=== PATIENT | female | born 1965 | race Caucasian/White ===

== ENCOUNTER 2025-01-13 09:44 | Observation (INO) | payer BC ==
[~2025-01-13] VITALS: Ht 165.1 cm; Wt 83.4 kg
[2025-01-13] MEDS ORDERED: LEVSOD25 PO (10:03)
[2025-01-13] MEDS ORDERED: ESCI20 PO (10:04)
[2025-01-13] MEDS ORDERED: Ondansetron HCl 2 MG / ML 2ML Vial IV PRN (12:05)
[2025-01-13] MEDS ORDERED: FLU VACC TS2025-26(6MOS UP)/PF 45 MCG/0.5 ML SYRINGE IM SCH (12:05)
--- NOTE | 2025-01-13 13:11 | NUR ---
Report received from ED RN at this time.
[2025-01-13 13:32] LABS: CHOL/HDL RATIO 7.0; Cholesterol 294 mg/dL (50-200); HDL Cholesterol 42 mg/dL (>39); LDL/HDL RATIO 4.6; Low Density Lipoprotein Chol 193 mg/dL (0-110); Triglycerides 293 mg/dL (30-160); Very Low Density Lipoprot Chol 58 mg/dL (6-32)
[2025-01-13 13:34] LABS: BASOPHILS ABSOLUTE AUTO 0.05 K/mm3 (0.00-0.23); BASOPHILS PERCENT AUTO 1 % (0-2); EOSINOPHILS ABSOLUTE AUTO 0.06 K/mm3 (0.00-0.68); EOSINOPHILS PERCENT AUTO 1 % (0-6); Hematocrit 41.8 % (33.0-51.0); Hemoglobin 14.2 g/dL (11.5-16.0); IMMATURE GRAN ABSOLUTE AUTO 0.02 K/mm3 (0.00-0.10); IMMATURE GRAN PERCENT AUTO 0 % (0-1); LYMPHOCYTES ABSOLUTE AUTO 2.05 K/mm3 (0.84-5.20); LYMPHOCYTES PERCENT AUTO 31 % (21-46); MONOCYTES ABSOLUTE AUTO 0.58 K/mm3 (0.16-1.47); MONOCYTES PERCENT AUTO 9 % (4-13); Mean Corpuscular HGB Conc 34.0 g/dL (31.5-36.5); Mean Corpuscular Volume 90 fL (80-100); NEUTROPHILS ABSOLUTE AUTO 3.96 K/mm3 (1.96-9.15); NEUTROPHILS PERCENT AUTO 59 % (41-73); NRBC ABSOLUTE 0.00 K/mm3 (0.00-0.02); NRBC Auto 0.0 /100 WBC (0.0-0.2); Platelet Count 275 K/mm3 (150-400); RDW Coefficient Variation 12.2 % (11.7-14.2); RDW Standard Deviation 40.7 fL (35.1-46.3)
[2025-01-13] MEDS ORDERED: Dose Adjust by Pharmacy XX STA (13:41)
[2025-01-13] MEDS ORDERED: Heparin Sodium 5000 Units/ML 1ML MDV IV ONE (13:45)
[2025-01-13] MEDS ORDERED: Heparin Sodium,Porcine/0.5 NS 500 ML IV SCH (13:45)
[2025-01-13 13:58] LABS: Anti-Xa UFH, PHA Monitoring <0.10 IU/mL; Prothrombin Time Results 11.2 Sec (9.7-11.5)
[2025-01-13] MEDS ORDERED: COQ-10100 MG PO (14:47)
[2025-01-13] MEDS ORDERED: FISH OIL 1,0001 EA10 PO (14:48)
[2025-01-13] MEDS ORDERED: SUPER B-50 COM1 EACH PO (14:49)
[2025-01-13] MEDS ORDERED: GLUCHON PO (14:49)
[2025-01-13] MEDS ORDERED: VIT D3-VIT K21 EACH PO (14:49)
--- NOTE | 2025-01-13 17:20 | NUR ---
SHIFT SUMMARY/UPDATE: PT A/O X4, ABLE TO MAKE NEEDS KNOWN. STRENGTH EQUAL BILATERALLY, INDEP IN ROOM. ROOM AIR, SATS >95%. PT ENDORSES SOB WITH ACTIVITY, AND C/O OF FATIGUE. PT SINUS ASHLEY 50-60s, DENIES CHEST PAIN/PRESSURE. ENDORSES CHEST PRESSURE WITH ACTIVITY THE LAST THREE WEEKS. PB ARMANDO CALLED [facility] WHERE PT WAS SEEN TODAY, [facility] WILL FAX OVER TODA[facility] LAB RESULTS. DR LOJA AT BEDSIDE THIS EVENING, DUE TO UPWARD TREND IN TROPONIN, THERE WILL BE NO STRESS TEST TODAY. PLAN FOR ANGIOGRAM TOMORROW 01/14. PT NPO AT 0000 FOR PROCEDURE. PT LAST BM WAS TODAY, ABLE TO VOID APPROPRIATELY. DENIES ANY CURRENT N/V. PT LYING IN BED, FRIEND AT BEDSIDE. CALL WITHIN REACH. WILL REPORT TO ONCOMING RN.
[2025-01-13 18:31] LABS: Alanine Aminotransfer (ALT/SGP 32.0 U/L (12-78); Albumin, Blood 3.7 g/dL (3.4-5.0); Albumin/Globulin Ratio 1.2 (0.8-1.8); Anion Gap 7.0 mmol/L (3-11); Aspartate Aminotrans (AST/SGOT 21.0 U/L (12-37); Bilirubin, Total 0.5 mg/dL (0.1-1.0); Blood Urea Nitrogen 17.0 mg/dL (8-24); CO2, Blood 25.0 mmol/L (21-32); Calcium, Blood 8.7 mg/dL (8.5-10.1); Chloride, Blood 111.0 mmol/L (98-108); Creatinine, Blood 0.78 mg/dL (0.40-1.00); Globulin, Blood 3.1 g/dL (2.2-4.0); Glucose, Blood 99.0 mg/dL (70-99); Potassium, Blood 3.5 mmol/L (3.5-5.5); Sodium, Blood 139.0 mmol/L (136-145); Total Protein, Blood 6.8 g/dL (6.4-8.2)
--- NOTE | 2025-01-13 18:35 | NUR ---
"Spiritual Care Visit | Pt. Request Pt. is awake in bed and welcomes my visit. Friend is present at bedside. Facilitated a life review and listened with empathy and interest. Rapport is established and well as a sense of trust. Consdiered matters of monserrat and belief. Prayed for the Pt. Pt. displayed evidence of trust and confidence as I normalized the Pt. experience. Pt. verbalized gratitude for the spiritual care visit and welcomed this building carpenter helper to return."
[2025-01-13 20:00] VITALS: BP 121/67
[2025-01-13 23:46] VITALS: BP 130/83
[2025-01-14] VITALS (10 sets, daily range): BP systolic 99–134; BP diastolic 50–74
[2025-01-14 03:25] LABS: BASOPHILS ABSOLUTE AUTO 0.04 K/mm3 (0.00-0.23); BASOPHILS PERCENT AUTO 1 % (0-2); EOSINOPHILS ABSOLUTE AUTO 0.11 K/mm3 (0.00-0.68); EOSINOPHILS PERCENT AUTO 2 % (0-6); Hematocrit 39.5 % (33.0-51.0); Hemoglobin 13.4 g/dL (11.5-16.0); IMMATURE GRAN ABSOLUTE AUTO 0.01 K/mm3 (0.00-0.10); IMMATURE GRAN PERCENT AUTO 0 % (0-1); LYMPHOCYTES ABSOLUTE AUTO 2.78 K/mm3 (0.84-5.20); LYMPHOCYTES PERCENT AUTO 41 % (21-46); MONOCYTES ABSOLUTE AUTO 0.72 K/mm3 (0.16-1.47); MONOCYTES PERCENT AUTO 11 % (4-13); Mean Corpuscular HGB Conc 33.9 g/dL (31.5-36.5); Mean Corpuscular Volume 91 fL (80-100); NEUTROPHILS ABSOLUTE AUTO 3.12 K/mm3 (1.96-9.15); NEUTROPHILS PERCENT AUTO 46 % (41-73); NRBC ABSOLUTE 0.00 K/mm3 (0.00-0.02); NRBC Auto 0.0 /100 WBC (0.0-0.2); Platelet Count 256 K/mm3 (150-400); RDW Coefficient Variation 12.3 % (11.7-14.2); RDW Standard Deviation 41.4 fL (35.1-46.3)
[2025-01-14 03:47] LABS: Alanine Aminotransfer (ALT/SGP 36.0 U/L (12-78); Albumin, Blood 3.5 g/dL (3.4-5.0); Albumin/Globulin Ratio 1.2 (0.8-1.8); Anion Gap 6.0 mmol/L (3-11); Aspartate Aminotrans (AST/SGOT 28.0 U/L (12-37); Bilirubin, Total 0.2 mg/dL (0.1-1.0); Blood Urea Nitrogen 17.0 mg/dL (8-24); CO2, Blood 28.0 mmol/L (21-32); Calcium, Blood 8.5 mg/dL (8.5-10.1); Chloride, Blood 110.0 mmol/L (98-108); Creatinine, Blood 0.8 mg/dL (0.40-1.00); Globulin, Blood 3.0 g/dL (2.2-4.0); Glucose, Blood 119.0 mg/dL (70-99); Potassium, Blood 3.7 mmol/L (3.5-5.5); Sodium, Blood 140.0 mmol/L (136-145); Total Protein, Blood 6.5 g/dL (6.4-8.2)
[2025-01-14] MEDS ORDERED: Clarify Drug Order XX ONE (03:50)
[2025-01-14] MEDS ORDERED: Morphine Sulfate 4 MG/1 ML Injection IV PRN (06:15)
[2025-01-14] MEDS ORDERED: Potassium Chl 20MEQ/Water100ML 100 ML IV STA (06:17)
[2025-01-14] MEDS ORDERED: NS 1,000 ML IV ONE ×2 (06:43→06:47)
[2025-01-14] MEDS ORDERED: Heparin Sodium 1000 Units/ML 10ML MDV ONE ×2 (06:43→06:47)
[2025-01-14] MEDS ORDERED: Verapamil HCL 2.5 MG/ML 2ML Injection ONE (06:43)
[2025-01-14] MEDS ORDERED: Nitroglycerin 2 MG/20 ML BTL ONE (06:43)
[2025-01-14] MEDS ORDERED: NS 250 ML IV ONE (06:43)
--- NOTE | 2025-01-14 06:47 | NUR ---
SHIFT SUMMARY PT A&O X4, CALM, COOPERATIVE TO CARE. HR IN THE 40'S-60'S, SINUS ASHLEY. PT DENIED ANY CP/PRESSURE T/O NIGHT. TRENDING TROPONINS. SBP STABLE. Sp02 >95% ON RA. SHE DENIES ANY SOB. PT IND IN ROOM, CALLS APPROPRIATELY. SHE C/O MILD HEADACHE T/O NIGHT, MEDICATING PER EMAR. HEPARIN GTT INFUSING PER EMAR. PT NPO SINCE 0000 FOR ANGIOGRAM THIS AM. SHE DENIES ANY QUESTIONS/CONCERNS AT THIS TIME. PT RESTING IN BED. CALL LIGHT IN REACH. WILL MONITOR PT AND REPORT TO ONCOMING RN. AROUND 0620 PT STARTED HAVING 4-5/10, SHARP, BURNING CHEST PAIN. DENIES ANY RADIATION DOWN ARM OR TO JAW. CALL PLACED TO MD, ORDER PLACED FOR MORPHINE Q4 FOR CP. DR. LOJA TO BEDSIDE THIS AM TO DISCUSS PROCEDURE AND OBTAIN CONSENT. PROTECTION ENGINEER RN AT BEDSIDE NOW.
--- NOTE | 2025-01-14 06:53 | NUR ---
TOOTH CUTTER RN TO BEDSIDE. PT LEFT FOR TOOTH CUTTER VIA BED AROUND 0650.
[2025-01-14] MEDS ORDERED: Midazolam HCl 1MG / ML 2ML Vial ONE (06:59)
[2025-01-14] MEDS ORDERED: FentaNYL Citrate 50 MCG/ML 2 ML Injection ONE (06:59)
--- NOTE | 2025-01-14 08:00 | NUR ---
ASSUMPTION NOTE: THIS RN TO ASSUME CARE OF PATIENT. 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 PATIENT HAS 9CC'S IN BAND,DENIED ANY PAIN, DUSKY COLOR MORET BROWN THREE SECONDS FOR CAP REFILL IN RIGHT HAND BUT IS ABLE TO MOVE AND STILL HAS SENSATION IN RIGHT HAND. PATIENT VITALS CYCLING AND PATIENT HAS CALL LIGHT WITHIN REAch, BED IN LOWEST LOCKED POSITION & STATING NOTHING ELSE IS NEEDED AT THIS TIME.
[2025-01-14] MEDS ORDERED: Enoxaparin 40 MG/0.4 ML SYR SC SCH (09:00)
[2025-01-14] MEDS ORDERED: ASPI81CH PO (11:00)
[2025-01-14] MEDS ORDERED: LOSA25 PO (11:01)
[2025-01-14] MEDS ORDERED: ATOR80 PO (11:01)
--- NOTE | 2025-01-14 11:12 | NUR ---
UPDATE TR BAND FULLY DEFLATED AT THIS TIME. NO HEMATOMA, NO BRUISING NOTED. ARM BOARD IN PLACE.
--- NOTE | 2025-01-14 12:59 | NUR ---
MD ROUNDED: MD ROUNDED AND SPOKE WITH PATIENT ABOUT GOING HOME. [facility] DISCHARGE PAPERWORK IS IN & RIDE SET FOR 2PM. PATIENT AWARE OF THE TWO NEW MEDICATIONS THAT SHE WILL BE STARTED ON. PATIENT REPORTED SOME HESITATION ABOUT STARTING NEW MEDICATIONS BUT RELUCTANTLY WILL. MD TALKED WITH PATIENT REGARDING THEM. [facility]
--- NOTE | 2025-01-14 14:29 | NUR ---
DISCHARGE NOTE: PATIENT IS ALERT AND ORIENTED X4 & COOPERATIVE WITH HER CARE. TELE WAS TAKEN OFF AND IV TAKEN OUT. PATIENT HAD A RIDE AND MEET HER AT THE ER ENTRANCE. PATIENT IS AWARE OF THE NEW MEDICATIONS THAT WERE SENT TO [facility] AND THIS RN CALLED TO CONFIRM THAT THEY WERE SENT AND RECEEIVNED. PATIENT WAS ALSO MADE AWARE TO FOLLOW UP WITH [facility] AT THE SCHEDULED APPOINTMENT ON December. PATIENT TOOK ALL PERSONAL BELONGINGS & DISCHARGE PACKET. AWARE TO NOT LIFT ANYTHING HEAVY AND NOT TO SUBMERGE HER RIGHT RADIAL SITE IN WATER OR A HOTUB. PATIENT LEFT WITH CLEAR TEGADERM OVER SITE & WRIST BOARD IN PLACE A REMINDER.
== END 2025-01-14 15:06 | disposition home or self-care (01) ==
LOC: ER 09:44 → PCU 09:45 → ERHOLD 09:45 → PCU 13:59
PROVIDERS: Student in an Organized Health Care Education/Training Program; ADMIT Student in an Organized Health Care Education/Training Program
DX: I16.0 Hypertensive urgency (principal); I11.9 Hypertensive heart disease without heart failure; R79.89 Other specified abnormal findings of blood chemistry; R00.1 Bradycardia, unspecified; E03.9 Hypothyroidism, unspecified; E78.5 Hyperlipidemia, unspecified; F41.8 Other specified anxiety disorders; Z88.0 Allergy status to penicillin; Z79.890 Hormone replacement therapy; Z79.899 Other long term (current) drug therapy; Z87.891 Personal history of nicotine dependence; Z86.79 Personal history of other diseases of the circulatory system; Z85.820 Personal history of malignant melanoma of skin; Z87.19 Personal history of other diseases of the digestive system; Z82.49 Family history of ischemic heart disease and other diseases of the circulatory system
CPT/HCPCS: 36415; 71046; 71260; 76937; 80053; 80061; 82565; 83036; 83880; 84484; 85025; 85379; 85520; 85610; 93306; 93454; 96374; 99152; 99284-25; A9270; C1769; C1887; C1894; G0378; J1644; J2250; J2270; J3010; J7030; J7050; Q9967